=== PATIENT | female | born 1965 | race Caucasian/White ===

== ENCOUNTER → 2023-08-27 09:54 | Outpatient (REF) | payer BC, SELFPAY | LOC: HWRAD 09:54 | PROVIDERS: ATTENDING PHYSICIAN Family Medicine | DX: E03.9 Hypothyroidism, unspecified (principal); R59.9 Enlarged lymph nodes, unspecified | CPT/HCPCS: 76536 ==

== ENCOUNTER → 2023-11-11 10:49 | Outpatient (REF) | payer BC, SELFPAY | LOC: WDC 10:49 | PROVIDERS: ATTENDING PHYSICIAN Family Medicine | DX: Z12.31 Encounter for screening mammogram for malignant neoplasm of breast (principal) | CPT/HCPCS: 77063; 77067 ==

== ENCOUNTER → 2024-08-30 12:14 | Outpatient (REF) | payer BC, SELFPAY | LOC: DHSLP 12:14 | PROVIDERS: ATTENDING PHYSICIAN Family Medicine | DX: G47.30 Sleep apnea, unspecified (principal); R06.83 Snoring | CPT/HCPCS: 95800 ==

== ENCOUNTER → 2024-08-30 12:57 | Outpatient (REF) | payer BC, SELFPAY | LOC: RAD 12:57 | PROVIDERS: ATTENDING PHYSICIAN Family Medicine | DX: R22.1 Localized swelling, mass and lump, neck (principal) | CPT/HCPCS: 70491; Q9967 ==

== ENCOUNTER → 2024-09-13 08:19 | Outpatient (REF) | payer BC, SELFPAY | LOC: MRI 08:19 | PROVIDERS: ATTENDING PHYSICIAN Family Medicine | DX: J98.59 Other diseases of mediastinum, not elsewhere classified (principal); R93.89 Abnormal findings on diagnostic imaging of other specified body structures | CPT/HCPCS: 71552; A9575 ==

== ENCOUNTER → 2024-11-14 11:05 | Outpatient (REF) | payer BC, SELFPAY | LOC: WDC 11:05 | PROVIDERS: ATTENDING PHYSICIAN Family Medicine | DX: Z12.31 Encounter for screening mammogram for malignant neoplasm of breast (principal) | CPT/HCPCS: 77063; 77067 ==

== ENCOUNTER → 2025-03-14 11:27 | Outpatient (REF) | payer BC, SELFPAY | LOC: RAD 11:27 | PROVIDERS: ATTENDING PHYSICIAN Family Medicine | DX: J98.59 Other diseases of mediastinum, not elsewhere classified (principal) | CPT/HCPCS: 71270; Q9967 ==